=== PATIENT | female | born 1950 | race Caucasian/White ===

== ENCOUNTER 2020-11-14 20:42 | Inpatient (IN) | payer MEDICARE, MEDICAID ==
[~2020-11-14] VITALS: Ht 167.6 cm; Wt 74.0 kg
[2020-11-14] MEDS ORDERED: ASPIRIN 325MG EC TABLET PO ONE (21:15)
[2020-11-15 01:04] LABS: BASOPHILS % 1.3 % (0.0-2.0); EOSINOPHILS % 1.3 % (0.0-5.0); HEMATOCRIT. 38.3 % (36.0-48.0); HEMOGLOBIN. 13.1 g/dL (12.0-16.0); LYMPHOCYTES % 22.5 % (20.0-50.0); MEAN CORPUSCULAR HEMOGLOBIN 29.3 pg (28.0-32.0); MEAN CORPUSCULAR VOLUME 85.6 fL (81.0-99.0); MEAN PLATELET VOLUME 7.1 fl (7.4-10.4); MONOCYTES % 6.8 % (2.0-8.0); NEUTROPHILS % 68.1 % (40.0-76.0); PLATELET 289 x1000/uL (130-400); RED BLOOD CELL COUNT 4.48 mill/uL (4.2-5.4); RED CELL DISTRIBUTION WIDTH 13.6 % (11.6-14.6)
[2020-11-15 01:11] LABS: CHLORIDE 109 mEq/L (98-107)
[2020-11-15] MEDS ORDERED: ASPIRIN 325MG EC TABLET PO NR (02:15)
[2020-11-15] MEDS ORDERED: IOHEXOL-350 100 ML BOTTLE ONE (03:00)
[2020-11-15] MEDS ORDERED: HEPARIN 5000 UNITS/ML VIAL IV ONE (08:00)
[2020-11-15] MEDS ORDERED: NICARDIPINE 100MCG/ML 10ML VIAL (CATH LAB) IV ONE (08:12)
[2020-11-15] MEDS ORDERED: NITROGLYCERIN 50MCG/ML 10ML VIAL (CATH LAB) IV ONE (08:12)
[2020-11-15] MEDS ORDERED: HEPARIN SODIUM 1,000 UNIT/1ML VIAL IV ONE (08:12)
[2020-11-15] MEDS ORDERED: HEPARIN 25,000 UNITS PREMIX 250 ML IV SCH ×2 (08:15→13:15)
[2020-11-15] MEDS ORDERED: SODIUM CHLORIDE 0.45% 500 ML IV ONE (08:45)
[2020-11-15] MEDS ORDERED: AMLODIPINE 10MG TABLET PO NR (08:45)
[2020-11-15] MEDS ORDERED: METOPROLOL TARTRATE 50MG TABLET PO SCH (09:00)
[2020-11-15] MEDS ORDERED: HEPARIN 5000 UNITS/ML VIAL IV NR (09:15)
[2020-11-15] MEDS: ASPIRIN 81MG EC TABLET PO SCH (09:24)
[2020-11-15] MEDS: NITROGLYCERIN OINT 1GM/INCH UDPKT TD SCH ×3 (09:24→21:00)
[2020-11-15 09:43] VITALS: BP 149/68
[2020-11-15 10:00] VITALS: BP 149/68
[2020-11-15] MEDS ORDERED: IODIXANOL 320MG/ML 100 ML BOTTLE IV ONE (12:12)
[2020-11-15] MEDS ORDERED: LIDOCAINE HCL 1% 20ML VIAL (Pyxis) INJ ONE (12:12)
[2020-11-15] MEDS ORDERED: MIDAZOLAM HCL 2 MG/2 ML VIAL ONE (12:32)
[2020-11-15] MEDS ORDERED: FENTANYL CITRATE/PF 50MCG/ML 2ML VIAL ONE (12:33)
[2020-11-15] MEDS ORDERED: ATROPINE SULFATE 1MG/10ML SYR IV PRN (13:15)
[2020-11-15] MEDS ORDERED: SODIUM CHLORIDE 0.45% 1,000 ML IV ONE (13:15)
[2020-11-15] MEDS ORDERED: ONDANSETRON HCL 4MG/2ML INJ IV PRN (13:15)
[2020-11-15 13:32] LABS: CLARITY URINE CLEAR (CLEAR); COLOR URINE YELLOW (YELLOW); KETONES URINE NEGATIVE (NEGATIVE); LEUKOCYTE ESTERASE URINE NEGATIVE (NEGATIVE); NITRITE URINE NEGATIVE (NEGATIVE); OCCULT BLOOD URINE NEGATIVE (NEGATIVE); PROTEIN URINE NEGATIVE (NEGATIVE); SPECIFIC GRAVITY URINE 1.026 (1.005-1.030); UROBILINOGEN URINE 0.2 E.U./dL (0.2-1.0)
[2020-11-15] MEDS ORDERED: BISACODYL 10MG SUPP PR PRN (14:00)
[2020-11-15] MEDS ORDERED: HYDRALAZINE 20MG/ML VIAL IV PRN (14:00)
[2020-11-15] MEDS ORDERED: TRAMADOL 50MG TABLET PO PRN (14:00)
[2020-11-15] MEDS ORDERED: IPRATROPIUM/ALBUTEROL 0.5-3(2.5)MG/3ML NEB HHN PRN (14:00)
[2020-11-15 14:01] LABS: CANNABINOID URINE SCREEN NEGATIVE (NEGATIVE)
[2020-11-15 14:02] LABS: *AMPHETAMINES SCREEN URINE NEGATIVE (NEGATIVE); *BARBITURATES SCREEN URINE NEGATIVE (NEGATIVE); *BENZODIAZEPINES SCREEN URINE NEGATIVE (NEGATIVE); *COCAINE SCREEN URINE NEGATIVE (NEGATIVE); METHADONE URINE SCREEN NEGATIVE (NEGATIVE); OPIATES URINE SCREEN NEGATIVE (NEGATIVE); PHENCYCLIDINE URINE SCREEN NEGATIVE (NEGATIVE)
[2020-11-15 16:40] LABS: PARTIAL THROMBOPLASTIN TIME 41.3 sec (23.4-31.0); PROTHROMBIN TIME 10.6 sec (9.6-11.0)
[2020-11-15 17:25] VITALS: BP 135/69
[2020-11-15] MEDS ORDERED: HEPARIN 5000 UNITS/ML VIAL IV PRN ×2 (17:30)
[2020-11-15] MEDS ORDERED: HEPARIN 25,000 UNITS PREMIX 250 ML IV PRN (17:30)
[2020-11-15 18:00] VITALS: BP 128/69
[2020-11-15] MEDS: ENOXAPARIN 60MG/0.6ML SYR SUBCUT SCH (18:10)
[2020-11-15 20:00] VITALS: BP 128/69
[2020-11-15] MEDS: AMLODIPINE 5MG TABLET PO SCH (20:57)
[2020-11-16] VITALS (12 sets, daily range): BP systolic 94–145; BP diastolic 26–91
[2020-11-16] MEDS: ENOXAPARIN 60MG/0.6ML SYR SUBCUT SCH ×3 (05:26→21:10)
[2020-11-16] MEDS: NITROGLYCERIN OINT 1GM/INCH UDPKT TD SCH ×4 (05:26→21:09)
[2020-11-16 07:20] LABS: BASOPHILS % 0.9 % (0.0-2.0); EOSINOPHILS % 2.2 % (0.0-5.0); HEMATOCRIT. 35.6 % (36.0-48.0); HEMOGLOBIN. 12.2 g/dL (12.0-16.0); LYMPHOCYTES % 23.4 % (20.0-50.0); MEAN CORPUSCULAR HEMOGLOBIN 29.2 pg (28.0-32.0); MEAN CORPUSCULAR VOLUME 85.4 fL (81.0-99.0); MEAN PLATELET VOLUME 7.6 fl (7.4-10.4); MONOCYTES % 7.1 % (2.0-8.0); NEUTROPHILS % 66.4 % (40.0-76.0); PLATELET 245 x1000/uL (130-400); RED BLOOD CELL COUNT 4.17 mill/uL (4.2-5.4); RED CELL DISTRIBUTION WIDTH 13.2 % (11.6-14.6)
[2020-11-16] MEDS: AMLODIPINE 5MG TABLET PO SCH ×2 (09:38→21:11)
[2020-11-16] MEDS: ASPIRIN 81MG EC TABLET PO SCH (09:38)
[2020-11-17] VITALS (12 sets, daily range): BP systolic 99–179; BP diastolic 48–98
[2020-11-17] MEDS: NITROGLYCERIN OINT 1GM/INCH UDPKT TD SCH ×3 (05:07→22:00)
[2020-11-17 06:57] LABS: BASOPHILS % 0.8 % (0.0-2.0); EOSINOPHILS % 2.9 % (0.0-5.0); HEMATOCRIT. 36.8 % (36.0-48.0); HEMOGLOBIN. 12.4 g/dL (12.0-16.0); LYMPHOCYTES % 26.3 % (20.0-50.0); MEAN CORPUSCULAR VOLUME 86.2 fL (81.0-99.0); MEAN PLATELET VOLUME 7.4 fl (7.4-10.4); MONOCYTES % 8.6 % (2.0-8.0); NEUTROPHILS % 61.4 % (40.0-76.0); PLATELET 268 x1000/uL (130-400); RED BLOOD CELL COUNT 4.27 mill/uL (4.2-5.4); RED CELL DISTRIBUTION WIDTH 13.5 % (11.6-14.6)
[2020-11-17] MEDS: AMLODIPINE 5MG TABLET PO SCH ×2 (09:00→20:13)
[2020-11-17] MEDS: ASPIRIN 81MG EC TABLET PO SCH (09:20)
[2020-11-17] MEDS: ENOXAPARIN 60MG/0.6ML SYR SUBCUT SCH ×2 (09:21→13:52)
[2020-11-17] MEDS ORDERED: ACETAMINOPHEN 325MG TABLET PO PRN (13:45)
[2020-11-17] MEDS ORDERED: ALPRAZOLAM 0.25 MG TABLET PO PRN (13:45)
[2020-11-17] MEDS ORDERED: NITROGLYCERIN 0.4MG TABLET SL SL PRN (13:45)
[2020-11-17] MEDS: SODIUM CHLORIDE 0.9% INJ 3ML FLUSH IVF SCH ×2 (14:35→21:44)
[2020-11-17] MEDS: ACETAMINOPHEN 325MG TABLET PO PRN (15:45)
[2020-11-17] MEDS ORDERED: LACTULOSE 20G/30ML UDC PO NR (20:00)
[2020-11-17] MEDS: ALLOPURINOL 300 MG TABLET PO SCH (20:13)
[2020-11-17] MEDS ORDERED: CHLORHEXIDINE GLUCONATE 4% EXTERNAL USE TOP SCH (21:00)
[2020-11-17] MEDS ORDERED: BISACODYL 10MG SUPP PR PRN (21:00)
[2020-11-17] MEDS ORDERED: DIPHENHYDRAMINE 25MG CAPSULE PO PRN (21:00)
[2020-11-17] MEDS ORDERED: DOCUSATE SODIUM 100MG CAPSULE PO SCH (21:00)
[2020-11-17] MEDS ORDERED: ASCORBIC ACID 500 MG TABLET PO SCH (21:00)
[2020-11-18] VITALS (14 sets, daily range): BP systolic 101–166; BP diastolic 45–98
[2020-11-18] MEDS: SODIUM CHLORIDE 0.9% INJ 3ML FLUSH IVF SCH ×3 (05:06→22:09)
[2020-11-18] MEDS: NITROGLYCERIN OINT 1GM/INCH UDPKT TD SCH ×3 (05:45→22:00)
[2020-11-18] MEDS: ALLOPURINOL 300 MG TABLET PO SCH (05:46)
[2020-11-18] MEDS ORDERED: INSULIN REGULAR (DRIP) 100 UNITS in SODIUM CHLORIDE 0.9% 99 ML IV PRN (06:00)
[2020-11-18] MEDS ORDERED: DEL NIDO ELECTROLYTE-S(PH 7.4) 1,000 ML IV PRN ×2 (06:00)
[2020-11-18] MEDS ORDERED: DOPAMINE 400 MG PREMIX 250 ML IV PRN (06:00)
[2020-11-18] MEDS ORDERED: EPINEPHRINE 5 MG in DEXT 5% WATER 245 ML IV PRN (06:00)
[2020-11-18] MEDS ORDERED: VANCOMYCIN 1G PREMIX 200ML IV PRN (06:00)
[2020-11-18] MEDS ORDERED: NOREPINEPHRINE 8 MG in DEXT 5% WATER 242 ML IV PRN (06:00)
[2020-11-18] MEDS ORDERED: PAPAVERINE HCL 180MG in SODIUM CHLORIDE 0.9% 24ML IV PRN (06:00)
[2020-11-18] MEDS ORDERED: NICARDIPINE 40 MG/200 ML PREMIX 200 ML IV PRN (06:00)
[2020-11-18] MEDS ORDERED: DOBUTAMINE 250 MG PREMIX 250 ML IV PRN (06:00)
[2020-11-18] MEDS ORDERED: AMINOCAPROIC ACID 5,000 MG in SODIUM CHLORIDE 0.9% 230 ML IV PRN (06:00)
[2020-11-18 07:14] LABS: PROTHROMBIN TIME 10.4 sec (9.6-11.0)
[2020-11-18 07:15] LABS: BASOPHILS % 0.7 % (0.0-2.0); EOSINOPHILS % 2.8 % (0.0-5.0); HEMATOCRIT. 38.5 % (36.0-48.0); HEMOGLOBIN. 12.7 g/dL (12.0-16.0); LYMPHOCYTES % 25.1 % (20.0-50.0); MEAN CORPUSCULAR HEMOGLOBIN 28.4 pg (28.0-32.0); MEAN CORPUSCULAR VOLUME 85.9 fL (81.0-99.0); MEAN PLATELET VOLUME 7.6 fl (7.4-10.4); MONOCYTES % 9.1 % (2.0-8.0); NEUTROPHILS % 62.3 % (40.0-76.0); PLATELET 245 x1000/uL (130-400); RED BLOOD CELL COUNT 4.48 mill/uL (4.2-5.4); RED CELL DISTRIBUTION WIDTH 13.6 % (11.6-14.6)
[2020-11-18] MEDS: AMLODIPINE 5MG TABLET PO SCH ×2 (07:52→22:08)
[2020-11-18] MEDS: ASPIRIN 81MG EC TABLET PO SCH (07:52)
[2020-11-18 08:21] LABS: CHLORIDE 105 mEq/L (98-107)
[2020-11-18] MEDS ORDERED: CHLORHEXIDINE GLUCONATE 4% EXTERNAL USE TOP SCH ×2 (09:00→21:00)
[2020-11-19] VITALS (54 sets, daily range): BP systolic 96–175; BP diastolic 31–108
[2020-11-19] MEDS ORDERED: CHLORHEXIDINE GLUCONATE 4% EXTERNAL USE TOP SCH (05:00)
[2020-11-19] MEDS ORDERED: DOPAMINE 400 MG PREMIX 250 ML IV PRN (06:00)
[2020-11-19] MEDS ORDERED: PAPAVERINE HCL 180MG in SODIUM CHLORIDE 0.9% 24ML IV PRN (06:00)
[2020-11-19] MEDS ORDERED: NICARDIPINE 40 MG/200 ML PREMIX 200 ML IV PRN (06:00)
[2020-11-19] MEDS ORDERED: AMINOCAPROIC ACID 5,000 MG in SODIUM CHLORIDE 0.9% 230 ML IV PRN ×2 (06:00→15:00)
[2020-11-19] MEDS ORDERED: EPINEPHRINE 5 MG in DEXT 5% WATER 245 ML IV PRN ×2 (06:00→18:00)
[2020-11-19] MEDS ORDERED: INSULIN REGULAR (DRIP) 100 UNITS in SODIUM CHLORIDE 0.9% 99 ML IV PRN (06:00)
[2020-11-19] MEDS ORDERED: DOBUTAMINE 250 MG PREMIX 250 ML IV PRN (06:00)
[2020-11-19] MEDS ORDERED: DEL NIDO ELECTROLYTE-S(PH 7.4) 1,000 ML IV PRN ×2 (06:00)
[2020-11-19] MEDS ORDERED: VANCOMYCIN 1G PREMIX 200ML IV PRN (06:00)
[2020-11-19] MEDS ORDERED: NOREPINEPHRINE 8 MG in DEXT 5% WATER 242 ML IV PRN (06:00)
[2020-11-19 06:12] LABS: BASOPHILS % 0.9 % (0.0-2.0); EOSINOPHILS % 2.8 % (0.0-5.0); HEMATOCRIT. 41.6 % (36.0-48.0); HEMOGLOBIN. 13.4 g/dL (12.0-16.0); MEAN CORPUSCULAR HEMOGLOBIN 28.2 pg (28.0-32.0); MEAN CORPUSCULAR VOLUME 87.3 fL (81.0-99.0); MEAN PLATELET VOLUME 7.4 fl (7.4-10.4); MONOCYTES % 8.2 % (2.0-8.0); NEUTROPHILS % 62.1 % (40.0-76.0); PLATELET 303 x1000/uL (130-400); RED BLOOD CELL COUNT 4.77 mill/uL (4.2-5.4); RED CELL DISTRIBUTION WIDTH 13.8 % (11.6-14.6)
[2020-11-19] MEDS ORDERED: SKIN ADHESIVE 0.7 GM EA TOP ONE (06:16)
[2020-11-19] MEDS ORDERED: THROMBIN (BOVINE) 5000 UNITS/VIAL TOP ONE (06:16)
[2020-11-19] MEDS ORDERED: HEPARIN 1000 UNITS/ML 10ML ONE ×4 (06:17→11:04)
[2020-11-19] MEDS ORDERED: POLYMYXIN B SULFATE 500000 UNITS/VIAL ONE (06:17)
[2020-11-19] MEDS: SODIUM CHLORIDE 0.9% INJ 3ML FLUSH IVF SCH (06:18)
[2020-11-19] MEDS ORDERED: ACETAMINOPHEN 500MG TABLET ONE (06:18)
[2020-11-19] MEDS: NITROGLYCERIN OINT 1GM/INCH UDPKT TD SCH (06:19)
[2020-11-19] MEDS ORDERED: FENTANYL CITRATE/PF 50MCG/ML 5ML VIAL ONE (07:18)
[2020-11-19] MEDS ORDERED: ETOMIDATE 2MG/ML 10ML VIAL IV ONE (07:19)
[2020-11-19] MEDS ORDERED: ROCURONIUM BROMIDE 10MG/ML VIAL 5ML IV ONE (07:19)
[2020-11-19] MEDS ORDERED: LIDOCAINE HCL 2% 5ML SYRINGE IV ONE (07:23)
[2020-11-19] MEDS ORDERED: LABETALOL HCL 5MG/ML VIAL 20ML IV ONE (07:23)
[2020-11-19] MEDS ORDERED: ALBUMIN HUMAN 12.5G/250ML (5%) IV ONE ×2 (08:14→15:40)
[2020-11-19] MEDS ORDERED: MAGNESIUM SULFATE 1G IN DEXT 5% 100ML PREMIX IV ONE (08:14)
[2020-11-19] MEDS ORDERED: POTASSIUM CHLORIDE 10MEQ IN WATER 50ML PREMIX IV ONE (08:14)
[2020-11-19] MEDS ORDERED: METHYLENE BLUE 50 MG/10 ML AMP IV ONE (09:38)
[2020-11-19] MEDS ORDERED: PROPOFOL 200MG/20ML VIAL IV ONE (09:48)
[2020-11-19] MEDS ORDERED: AMINOCAPROIC ACID 250 MG/ML 20ML VIAL ONE ×2 (09:54→10:32)
[2020-11-19] MEDS ORDERED: VECURONIUM BROMIDE 10 MG/VIAL IV ONE ×2 (09:55→13:25)
[2020-11-19] MEDS ORDERED: DEXTROSE 50% WATER 50ML SYRINGE IV PRN ×2 (10:00)
[2020-11-19] MEDS ORDERED: HEPARIN 10,000 UNITS/ML VIAL ONE (10:32)
[2020-11-19] MEDS ORDERED: MANNITOL 20% (20GM/100ML) BAG 500ML PREMIX IV ONE (10:32)
[2020-11-19] MEDS ORDERED: PHENYLEPHRINE HCL 10 MG/ML 1ML (IV VIAL) IV ONE (10:32)
[2020-11-19] MEDS ORDERED: ALBUMIN HUMAN 25GM/100ML (25%) IV ONE (10:32)
[2020-11-19] MEDS ORDERED: SODIUM BICARBONATE 8.4% 1 MEQ/ML 50ML SYR IV ONE ×2 (10:32→14:49)
[2020-11-19] MEDS ORDERED: CALCIUM CHLORIDE 1GM/10ML SYR IV ONE (10:32)
[2020-11-19] MEDS ORDERED: MAGNESIUM SULFATE 5GM/10ML VIAL IV ONE (10:32)
[2020-11-19] MEDS ORDERED: VANCOMYCIN HCL 500 MG/VIAL ONE (10:33)
[2020-11-19] MEDS ORDERED: NITROGLYCERIN 50MG PREMIX 250 ML IV ONE (11:02)
[2020-11-19] MEDS ORDERED: KCL 10MEQ/50ML PREMIX 150 ML IV PRN (14:00)
[2020-11-19] MEDS ORDERED: KCL 10MEQ/50ML PREMIX 200 ML IV PRN (14:00)
[2020-11-19] MEDS ORDERED: PROTAMINE SULFATE 10MG/ML VIAL 25ML IV ONE (14:06)
[2020-11-19] MEDS ORDERED: ONDANSETRON HCL 4MG/2ML INJ ONE (14:35)
[2020-11-19] MEDS ORDERED: METOCLOPRAMIDE HCL 10MG/2ML VIAL ONE (14:35)
[2020-11-19] MEDS: BLOOD SUGAR DIAGNOSTIC STRIP TEST SCH ×9 (15:00→23:00)
[2020-11-19 15:26] LABS: BASOPHILS % 0.2 % (0.0-2.0); EOSINOPHILS % 0.5 % (0.0-5.0); LYMPHOCYTES % 15.1 % (20.0-50.0); MEAN CORPUSCULAR HEMOGLOBIN 29.6 pg (28.0-32.0); MEAN CORPUSCULAR VOLUME 86.7 fL (81.0-99.0); MEAN PLATELET VOLUME 7.2 fl (7.4-10.4); MONOCYTES % 1.8 % (2.0-8.0); NEUTROPHILS % 82.4 % (40.0-76.0); PLATELET 148 x1000/uL (130-400); RED BLOOD CELL COUNT 2.99 mill/uL (4.2-5.4); RED CELL DISTRIBUTION WIDTH 13.6 % (11.6-14.6)
[2020-11-19 15:33] LABS: INR 1.1; PARTIAL THROMBOPLASTIN TIME 24.3 sec (23.4-31.0); PROTHROMBIN TIME 11.8 sec (9.6-11.0)
[2020-11-19 15:37] LABS: CHLORIDE 106 mEq/L (98-107)
[2020-11-19 15:41] LABS: HEMATOCRIT. 25.9 % (36.0-48.0); HEMOGLOBIN. 8.9 g/dL (12.0-16.0)
[2020-11-19 15:43] LABS: PHOSPHORUS 1.9 mg/dL (2.5-4.9)
[2020-11-19] MEDS ORDERED: DEXT 5%/0.45% NACL 1000ML 1,000 ML IV SCH (16:00)
[2020-11-19 16:15] LABS: BG BASE EXCESS -0.5 mmol/L (-2.0-2.0); BG CARBOXYHEMOGLOBIN 0.2 % (0.5-1.5); BG DEOXYHEMOGLOBIN 1.8 % (0.0-5.0); BG FRACTION INSPIRED OXYGEN 60; BG HCO3 ACT 23.8 mmol/L (22.0-26.0); BG METHEMOGLOBIN 0.4 % (0.0-1.5); BG OXYGEN SATURATION 98.2 % (92.0-98.5); BG OXYHEMOGLOBIN 97.6 % (94.0-97.0); BG PH 7.415 (7.350-7.450); BG PO2 122.6 mmHg (75.0-100.0); BG SAMPLE SITE ALINE; BG TOTAL HEMOGLOBIN 12.1 g/dL (12.0-18.0); BG VENT MODE VENT - AC
[2020-11-19 16:34] LABS: BASOPHILS % 0.1 % (0.0-2.0); EOSINOPHILS % 0.2 % (0.0-5.0); HEMATOCRIT. 33.1 % (36.0-48.0); HEMOGLOBIN. 11.2 g/dL (12.0-16.0); LYMPHOCYTES % 11.5 % (20.0-50.0); MEAN CORPUSCULAR HEMOGLOBIN 29.2 pg (28.0-32.0); MEAN PLATELET VOLUME 7.2 fl (7.4-10.4); MONOCYTES % 5.3 % (2.0-8.0); NEUTROPHILS % 82.9 % (40.0-76.0); PLATELET 156 x1000/uL (130-400); RED BLOOD CELL COUNT 3.84 mill/uL (4.2-5.4); RED CELL DISTRIBUTION WIDTH 13.6 % (11.6-14.6)
[2020-11-19] MEDS: DEXT 5%/0.45% NACL 1000ML 1,000 ML IV SCH (16:45)
[2020-11-19] MEDS ORDERED: MAGNESIUM 2 G PREMIX 50 ML IV PRN (16:45)
[2020-11-19] MEDS ORDERED: SODIUM CHLORIDE 0.9% 500 ML IV PRN (16:45)
[2020-11-19] MEDS ORDERED: ALBUMIN HUMAN 12.5G/250ML (5%) IV NR ×2 (16:45→17:42)
[2020-11-19] MEDS ORDERED: ALBUMIN HUMAN 12.5G/250ML (5%) IV PRN (16:45)
[2020-11-19] MEDS ORDERED: NITROGLYCERIN 50MG PREMIX 250 ML IV SCH (16:45)
[2020-11-19] MEDS ORDERED: MAGNESIUM SULFATE 3 GM in DEXT 5% WATER 100 ML IV PRN (16:45)
[2020-11-19] MEDS: MAGNESIUM HYDROXIDE 400MG/5ML 30ML UDC PO SCH ×2 (17:00→20:35)
[2020-11-19] MEDS: DOCUSATE SODIUM 100MG CAPSULE PO SCH (17:00)
[2020-11-19] MEDS: MORPHINE SULFATE 2 MG/ML CPJ (NOT FOR IM USE) IV PRN ×3 (17:28→22:28)
[2020-11-19 17:29] LABS: BG BASE EXCESS -1.1 mmol/L (-2.0-2.0); BG CARBOXYHEMOGLOBIN 0.3 % (0.5-1.5); BG DEOXYHEMOGLOBIN 1.9 % (0.0-5.0); BG FRACTION INSPIRED OXYGEN 50; BG HCO3 ACT 23.6 mmol/L (22.0-26.0); BG METHEMOGLOBIN 0.3 % (0.0-1.5); BG OXYGEN SATURATION 98.1 % (92.0-98.5); BG OXYHEMOGLOBIN 97.5 % (94.0-97.0); BG PCO2 39.4 mmHg (35.0-45.0); BG PH 7.395 (7.350-7.450); BG PO2 122.1 mmHg (75.0-100.0); BG SAMPLE SITE ALINE; BG TOTAL HEMOGLOBIN 11.6 g/dL (12.0-18.0); BG VENT MODE VENT - AC
[2020-11-19 18:24] LABS: BG BASE EXCESS -1.4 mmol/L (-2.0-2.0); BG CARBOXYHEMOGLOBIN 0.3 % (0.5-1.5); BG DEOXYHEMOGLOBIN 2.5 % (0.0-5.0); BG FRACTION INSPIRED OXYGEN 40; BG HCO3 ACT 22.4 mmol/L (22.0-26.0); BG METHEMOGLOBIN 0.4 % (0.0-1.5); BG OXYGEN SATURATION 97.5 % (92.0-98.5); BG OXYHEMOGLOBIN 96.8 % (94.0-97.0); BG PCO2 34.5 mmHg (35.0-45.0); BG PH 7.431 (7.350-7.450); BG SAMPLE SITE ALINE; BG TOTAL HEMOGLOBIN 10.8 g/dL (12.0-18.0); BG VENT MODE VENT - AC
[2020-11-19] MEDS: CEFAZOLIN 1000MG PREMIX 50 ML IV SCH (20:22)
[2020-11-19 20:31] LABS: BG BASE EXCESS -0.1 mmol/L (-2.0-2.0); BG CARBOXYHEMOGLOBIN 0.3 % (0.5-1.5); BG DEOXYHEMOGLOBIN 2.3 % (0.0-5.0); BG FRACTION INSPIRED OXYGEN 40; BG HCO3 ACT 24.1 mmol/L (22.0-26.0); BG METHEMOGLOBIN 0.4 % (0.0-1.5); BG OXYGEN SATURATION 97.7 % (92.0-98.5); BG PCO2 37.6 mmHg (35.0-45.0); BG PH 7.425 (7.350-7.450); BG SAMPLE SITE ALINE; BG TOTAL HEMOGLOBIN 10.7 g/dL (12.0-18.0); BG TOTAL RESPIRATORY RATE 32 b/min; BG VENT MODE VENT - SIMV
[2020-11-19] MEDS: ACETAMINOPHEN 325MG TABLET PO PRN (20:36)
[2020-11-19 21:21] LABS: HEMATOCRIT. 29.3 % (36.0-48.0); MEAN CORPUSCULAR HEMOGLOBIN 29.3 pg (28.0-32.0); MEAN CORPUSCULAR VOLUME 85.9 fL (81.0-99.0); MEAN PLATELET VOLUME 7.4 fl (7.4-10.4); PLATELET 126 x1000/uL (130-400); RED BLOOD CELL COUNT 3.41 mill/uL (4.2-5.4); RED CELL DISTRIBUTION WIDTH 13.9 % (11.6-14.6)
[2020-11-19] MEDS: KCL 10MEQ/50ML PREMIX 100 ML IV PRN (22:53)
[2020-11-19] MEDS: MAGNESIUM 1 G PREMIX 100 ML IV PRN (22:54)
[2020-11-19] MEDS: IPRATROPIUM/ALBUTEROL 0.5-3(2.5)MG/3ML NEB HHN SCH (23:36)
[2020-11-20] VITALS (52 sets, daily range): BP systolic 93–228; BP diastolic 26–228
[2020-11-20] MEDS: INSULIN REGULAR (DRIP) 100 UNITS in SODIUM CHLORIDE 0.9% 100 ML IV SCH ×2 (00:15→12:15)
[2020-11-20] MEDS: MORPHINE SULFATE 2 MG/ML CPJ (NOT FOR IM USE) IV PRN ×5 (00:27→18:31)
[2020-11-20 00:40] LABS: BG BASE EXCESS -0.1 mmol/L (-2.0-2.0); BG CARBOXYHEMOGLOBIN 0.3 % (0.5-1.5); BG DEOXYHEMOGLOBIN 2.9 % (0.0-5.0); BG FRACTION INSPIRED OXYGEN 40; BG HCO3 ACT 23.8 mmol/L (22.0-26.0); BG METHEMOGLOBIN 0.1 % (0.0-1.5); BG OXYGEN SATURATION 97.1 % (92.0-98.5); BG OXYHEMOGLOBIN 96.7 % (94.0-97.0); BG PCO2 35.8 mmHg (35.0-45.0); BG PO2 93.7 mmHg (75.0-100.0); BG SAMPLE SITE ALINE; BG TOTAL HEMOGLOBIN 10.7 g/dL (12.0-18.0); BG TOTAL RESPIRATORY RATE 23 b/min; BG VENT MODE VENT - SIMV
[2020-11-20] MEDS: ACETAMINOPHEN 325MG TABLET PO PRN (00:41)
[2020-11-20] MEDS: MAGNESIUM HYDROXIDE 400MG/5ML 30ML UDC PO SCH ×5 (00:44→17:14)
[2020-11-20] MEDS: BLOOD SUGAR DIAGNOSTIC STRIP TEST SCH ×24 (01:00→23:00)
[2020-11-20] MEDS: DEXT 5%/0.45% NACL 1000ML 1,000 ML IV SCH ×2 (01:50→21:37)
[2020-11-20 02:14] LABS: BG CARBOXYHEMOGLOBIN 0.4 % (0.5-1.5); BG FRACTION INSPIRED OXYGEN 40; BG HCO3 ACT 22.5 mmol/L (22.0-26.0); BG METHEMOGLOBIN 0.3 % (0.0-1.5); BG OXYHEMOGLOBIN 96.3 % (94.0-97.0); BG PCO2 32.9 mmHg (35.0-45.0); BG PH 7.452 (7.350-7.450); BG SAMPLE SITE ALINE; BG TOTAL HEMOGLOBIN 10.7 g/dL (12.0-18.0); BG TOTAL RESPIRATORY RATE 34 b/min; BG VENT MODE VENT - CPAP
[2020-11-20] MEDS: CEFAZOLIN 1000MG PREMIX 50 ML IV SCH ×3 (03:02→17:14)
[2020-11-20 03:34] LABS: PLATELET ESTIMATE SLIGHTLY DECREASED
[2020-11-20 03:52] LABS: BASOPHILS % 0.4 % (0.0-2.0); EOSINOPHILS % 0.3 % (0.0-5.0); HEMOGLOBIN. 10.2 g/dL (12.0-16.0); LYMPHOCYTES % 7.9 % (20.0-50.0); MEAN CORPUSCULAR HEMOGLOBIN 28.7 pg (28.0-32.0); MEAN CORPUSCULAR VOLUME 87.3 fL (81.0-99.0); MEAN PLATELET VOLUME 8.1 fl (7.4-10.4); MONOCYTES % 6.8 % (2.0-8.0); NEUTROPHILS % 84.6 % (40.0-76.0); PLATELET 125 x1000/uL (130-400); RED BLOOD CELL COUNT 3.55 mill/uL (4.2-5.4); RED CELL DISTRIBUTION WIDTH 14.2 % (11.6-14.6)
[2020-11-20] MEDS: IPRATROPIUM/ALBUTEROL 0.5-3(2.5)MG/3ML NEB HHN SCH ×5 (04:06→21:20)
[2020-11-20 04:21] LABS: PHOSPHORUS 2.7 mg/dL (2.5-4.9)
[2020-11-20] MEDS: OXYCODONE HCL/ACETAMINOPHEN 5/325MG TABLET PO PRN ×2 (07:53→13:07)
[2020-11-20 09:02] LABS: BG BASE EXCESS -1.4 mmol/L (-2.0-2.0); BG CARBOXYHEMOGLOBIN 0.8 % (0.5-1.5); BG DEOXYHEMOGLOBIN 7.2 % (0.0-5.0); BG FRACTION INSPIRED OXYGEN 32; BG HCO3 ACT 23.8 mmol/L (22.0-26.0); BG METHEMOGLOBIN 0.1 % (0.0-1.5); BG OXYGEN SATURATION 92.7 % (92.0-98.5); BG OXYHEMOGLOBIN 91.9 % (94.0-97.0); BG PH 7.372 (7.350-7.450); BG PO2 64.9 mmHg (75.0-100.0); BG SAMPLE SITE ALINE; BG TOTAL HEMOGLOBIN 11.7 g/dL (12.0-18.0); BG VENT MODE NASAL CANNULA
[2020-11-20] MEDS: DOCUSATE SODIUM 100MG CAPSULE PO SCH ×2 (09:25→17:10)
[2020-11-20] MEDS: FAMOTIDINE 20MG/2ML VIAL IV SCH (09:25)
[2020-11-20] MEDS ORDERED: FUROSEMIDE 40MG/4ML VIAL IVP NR (11:00)
[2020-11-20] MEDS: ASPIRIN 81MG EC TABLET PO SCH (11:04)
[2020-11-21] VITALS (24 sets, daily range): BP systolic 78–130; BP diastolic 45–71
[2020-11-21] MEDS ORDERED: FUROSEMIDE 40MG/4ML VIAL IVP NR
[2020-11-21] MEDS: BLOOD SUGAR DIAGNOSTIC STRIP TEST SCH ×19 (01:00→21:20)
[2020-11-21] MEDS: IPRATROPIUM/ALBUTEROL 0.5-3(2.5)MG/3ML NEB HHN SCH ×5 (01:15→20:46)
[2020-11-21] MEDS: MORPHINE SULFATE 2 MG/ML CPJ (NOT FOR IM USE) IV PRN ×3 (01:19→09:51)
[2020-11-21] MEDS: OXYCODONE HCL/ACETAMINOPHEN 5/325MG TABLET PO PRN ×2 (03:52→11:33)
[2020-11-21 06:30] LABS: PHOSPHORUS 2.9 mg/dL (2.5-4.9)
[2020-11-21 06:38] LABS: BASOPHILS % 0.3 % (0.0-2.0); EOSINOPHILS % 0.7 % (0.0-5.0); HEMATOCRIT. 35.1 % (36.0-48.0); HEMOGLOBIN. 11.2 g/dL (12.0-16.0); LYMPHOCYTES % 9.6 % (20.0-50.0); MEAN CORPUSCULAR HEMOGLOBIN 28.6 pg (28.0-32.0); MEAN CORPUSCULAR VOLUME 89.3 fL (81.0-99.0); NEUTROPHILS % 83.4 % (40.0-76.0); PLATELET 145 x1000/uL (130-400); RED BLOOD CELL COUNT 3.93 mill/uL (4.2-5.4); RED CELL DISTRIBUTION WIDTH 14.4 % (11.6-14.6)
[2020-11-21] MEDS: MAGNESIUM 1 G PREMIX 100 ML IV PRN (08:38)
[2020-11-21] MEDS: ASPIRIN 81MG EC TABLET PO SCH (08:39)
[2020-11-21] MEDS: FAMOTIDINE 20MG/2ML VIAL IV SCH (08:39)
[2020-11-21] MEDS: DOCUSATE SODIUM 100MG CAPSULE PO SCH ×2 (08:39→16:47)
[2020-11-21] MEDS: ACETAMINOPHEN 325MG TABLET PO PRN (08:40)
[2020-11-21] MEDS ORDERED: MAGNESIUM HYDROXIDE 400MG/5ML 30ML UDC PO PRN (13:15)
[2020-11-21] MEDS ORDERED: KETOROLAC 15MG/ML VIAL IV NR (13:15)
[2020-11-21] MEDS: INSULIN REGULAR (DRIP) 100 UNITS in SODIUM CHLORIDE 0.9% 100 ML IV SCH (15:03)
[2020-11-21] MEDS: LACTULOSE 20G/30ML UDC PO PRN ×2 (15:08→20:59)
[2020-11-21] MEDS: DEXT 5%/0.45% NACL 1000ML 1,000 ML IV SCH (16:48)
[2020-11-21] MEDS: MAGNESIUM HYDROXIDE 400MG/5ML 30ML UDC PO SCH ×2 (16:52→20:59)
[2020-11-21] MEDS ORDERED: DEXTROSE 50% WATER 50ML SYRINGE IV PRN (19:15)
[2020-11-21] MEDS: INSULIN LISPRO 100 UNITS/ML SUBCUT SCH (21:00)
[2020-11-21] MEDS ORDERED: LACTULOSE 20G/30ML UDC PO ONE (21:00)
[2020-11-21] MEDS: ONDANSETRON HCL 4MG/2ML INJ IV PRN (21:22)
[2020-11-21] MEDS ORDERED: LACTULOSE 20G/30ML UDC PO NR (21:30)
[2020-11-22] VITALS (22 sets, daily range): BP systolic 98–151; BP diastolic 56–84
[2020-11-22] MEDS: IPRATROPIUM/ALBUTEROL 0.5-3(2.5)MG/3ML NEB HHN SCH ×6 (00:17→20:46)
[2020-11-22] MEDS: HYDROCODONE/ACETAMINOPHEN 5/325MG TABLET PO PRN ×2 (00:56→14:22)
[2020-11-22 06:10] LABS: BASOPHILS % 0.6 % (0.0-2.0); HEMATOCRIT. 29.2 % (36.0-48.0); HEMOGLOBIN. 9.7 g/dL (12.0-16.0); LYMPHOCYTES % 13.3 % (20.0-50.0); MEAN CORPUSCULAR HEMOGLOBIN 28.9 pg (28.0-32.0); MEAN CORPUSCULAR VOLUME 87.3 fL (81.0-99.0); MEAN PLATELET VOLUME 7.7 fl (7.4-10.4); MONOCYTES % 6.1 % (2.0-8.0); PLATELET 148 x1000/uL (130-400); RED BLOOD CELL COUNT 3.34 mill/uL (4.2-5.4); RED CELL DISTRIBUTION WIDTH 14.2 % (11.6-14.6)
[2020-11-22] MEDS: INSULIN LISPRO 100 UNITS/ML SUBCUT SCH ×4 (06:44→23:21)
[2020-11-22] MEDS: BLOOD SUGAR DIAGNOSTIC STRIP TEST SCH ×4 (06:44→20:34)
[2020-11-22] MEDS ORDERED: MAGNESIUM HYDROXIDE 400MG/5ML 30ML UDC PO PRN (08:00)
[2020-11-22] MEDS: ASPIRIN 81MG EC TABLET PO SCH (08:52)
[2020-11-22] MEDS: FAMOTIDINE 20MG/2ML VIAL IV SCH (08:53)
[2020-11-22] MEDS: DOCUSATE SODIUM 100MG CAPSULE PO SCH ×2 (08:53→16:06)
[2020-11-22] MEDS ORDERED: CLOPIDOGREL 75MG TABLET PO SCH (09:00)
[2020-11-22] MEDS: KCL 10MEQ/50ML PREMIX 100 ML IV PRN (09:13)
[2020-11-22] MEDS ORDERED: POTASSIUM CHLORIDE 20MEQ TABLET SR PO NR (10:45)
[2020-11-22] MEDS ORDERED: FUROSEMIDE 40MG/4ML VIAL IVP NR (10:45)
[2020-11-22] MEDS: ACETAMINOPHEN 325MG TABLET PO PRN (12:26)
[2020-11-22] MEDS ORDERED: LIDOCAINE HCL 1% 20ML VIAL (Pyxis) INJ ONE (13:15)
[2020-11-22] MEDS: DEXT 5%/0.45% NACL 1000ML 1,000 ML IV SCH (16:00)
[2020-11-22] MEDS: ONDANSETRON HCL 4MG/2ML INJ IV PRN (16:06)
[2020-11-22 16:20] LABS: HEMATOCRIT 30.4 % (36.0-48.0); HEMOGLOBIN 10.2 g/dL (12.0-16.0)
[2020-11-22] MEDS ORDERED: METOPROLOL TARTRATE 25MG TABLET PO SCH (21:00)
[2020-11-22] MEDS: OXYCODONE HCL/ACETAMINOPHEN 5/325MG TABLET PO PRN (23:31)
[2020-11-23] VITALS (12 sets, daily range): BP systolic 90–125; BP diastolic 43–71
[2020-11-23] MEDS: IPRATROPIUM/ALBUTEROL 0.5-3(2.5)MG/3ML NEB HHN SCH ×6 (00:56→21:23)
[2020-11-23] MEDS: DEXT 5%/0.45% NACL 1000ML 1,000 ML IV SCH (01:15)
[2020-11-23] MEDS: HYDROCODONE/ACETAMINOPHEN 5/325MG TABLET PO PRN (03:08)
[2020-11-23] MEDS: BLOOD SUGAR DIAGNOSTIC STRIP TEST SCH ×4 (06:33→21:37)
[2020-11-23] MEDS: INSULIN LISPRO 100 UNITS/ML SUBCUT SCH ×4 (07:20→21:00)
[2020-11-23 07:59] LABS: BASOPHILS % 0.8 % (0.0-2.0); HEMATOCRIT. 28.9 % (36.0-48.0); HEMOGLOBIN. 9.7 g/dL (12.0-16.0); LYMPHOCYTES % 19.5 % (20.0-50.0); MEAN CORPUSCULAR HEMOGLOBIN 29.3 pg (28.0-32.0); MEAN CORPUSCULAR VOLUME 87.5 fL (81.0-99.0); MEAN PLATELET VOLUME 7.4 fl (7.4-10.4); MONOCYTES % 9.6 % (2.0-8.0); NEUTROPHILS % 67.1 % (40.0-76.0); PLATELET 222 x1000/uL (130-400)
[2020-11-23] MEDS: DOCUSATE SODIUM 100MG CAPSULE PO SCH ×2 (09:45→17:20)
[2020-11-23] MEDS: METOPROLOL TARTRATE 50MG TABLET PO SCH ×2 (09:45→21:45)
[2020-11-23] MEDS: FAMOTIDINE 20MG/2ML VIAL IV SCH (09:45)
[2020-11-23] MEDS ORDERED: LIDOCAINE HCL/PF 1% 2ML VIAL ONE (14:50)
[2020-11-23] MEDS: MORPHINE SULFATE 2 MG/ML CPJ (NOT FOR IM USE) IV PRN (15:09)
[2020-11-23 15:50] LABS: BG BASE EXCESS 3.5 mmol/L (-2.0-2.0); BG DEOXYHEMOGLOBIN 9.5 % (0.0-5.0); BG FRACTION INSPIRED OXYGEN 21; BG HCO3 ACT 27.3 mmol/L (22.0-26.0); BG METHEMOGLOBIN 0.4 % (0.0-1.5); BG OXYGEN SATURATION 90.5 % (92.0-98.5); BG OXYHEMOGLOBIN 90.1 % (94.0-97.0); BG PCO2 38.6 mmHg (35.0-45.0); BG PH 7.468 (7.350-7.450); BG PO2 56.1 mmHg (75.0-100.0); BG SAMPLE SITE RIGHT RADIAL; BG TOTAL HEMOGLOBIN 10.8 g/dL (12.0-18.0); BG VENT MODE ROOM AIR
[2020-11-23] MEDS ORDERED: FUROSEMIDE 40MG/4ML VIAL IVP NR (16:30)
[2020-11-24] VITALS (12 sets, daily range): BP systolic 84–120; BP diastolic 46–75
[2020-11-24] MEDS: IPRATROPIUM/ALBUTEROL 0.5-3(2.5)MG/3ML NEB HHN SCH ×6 (00:30→21:11)
[2020-11-24] MEDS: OXYCODONE HCL/ACETAMINOPHEN 5/325MG TABLET PO PRN (00:32)
[2020-11-24] MEDS ORDERED: FUROSEMIDE 40MG/4ML VIAL IVP NR ×2 (06:00→16:00)
[2020-11-24] MEDS: BLOOD SUGAR DIAGNOSTIC STRIP TEST SCH ×4 (06:58→20:04)
[2020-11-24 07:20] LABS: HEMATOCRIT. 28.7 % (36.0-48.0); HEMOGLOBIN. 9.7 g/dL (12.0-16.0); MEAN CORPUSCULAR HEMOGLOBIN 29.6 pg (28.0-32.0); MEAN CORPUSCULAR VOLUME 87.6 fL (81.0-99.0); PLATELET 261 x1000/uL (130-400); RED BLOOD CELL COUNT 3.28 mill/uL (4.2-5.4); RED CELL DISTRIBUTION WIDTH 14.1 % (11.6-14.6)
[2020-11-24] MEDS: INSULIN LISPRO 100 UNITS/ML SUBCUT SCH ×4 (07:20→20:20)
[2020-11-24] MEDS: ONDANSETRON HCL 4MG/2ML INJ IV PRN (07:43)
[2020-11-24] MEDS: METOPROLOL TARTRATE 50MG TABLET PO SCH ×2 (09:06→20:04)
[2020-11-24] MEDS: FAMOTIDINE 20MG/2ML VIAL IV SCH (09:06)
[2020-11-24] MEDS: DOCUSATE SODIUM 100MG CAPSULE PO SCH ×2 (09:06→17:17)
[2020-11-24] MEDS: ASPIRIN 81MG EC TABLET PO SCH (09:06)
[2020-11-24] MEDS: CLOPIDOGREL 75MG TABLET PO SCH (09:06)
[2020-11-24] MEDS: HYDROCODONE/ACETAMINOPHEN 5/325MG TABLET PO PRN ×2 (12:19→23:25)
[2020-11-24 14:40] LABS: PLATELET ESTIMATE NORMAL
[2020-11-25] VITALS (12 sets, daily range): BP systolic 85–124; BP diastolic 38–73
[2020-11-25] MEDS: IPRATROPIUM/ALBUTEROL 0.5-3(2.5)MG/3ML NEB HHN SCH ×4 (00:44→12:01)
[2020-11-25 05:28] LABS: HEMATOCRIT. 30.3 % (36.0-48.0); MEAN CORPUSCULAR HEMOGLOBIN 28.8 pg (28.0-32.0); MEAN CORPUSCULAR VOLUME 87.2 fL (81.0-99.0); MEAN PLATELET VOLUME 6.7 fl (7.4-10.4); PLATELET 336 x1000/uL (130-400); RED BLOOD CELL COUNT 3.47 mill/uL (4.2-5.4); RED CELL DISTRIBUTION WIDTH 14.1 % (11.6-14.6)
[2020-11-25] MEDS ORDERED: FUROSEMIDE 40MG/4ML VIAL IVP NR (06:00)
[2020-11-25] MEDS: BLOOD SUGAR DIAGNOSTIC STRIP TEST SCH ×4 (06:05→20:16)
[2020-11-25 07:03] LABS: PLATELET ESTIMATE NORMAL
[2020-11-25] MEDS: INSULIN LISPRO 100 UNITS/ML SUBCUT SCH ×4 (07:20→20:16)
[2020-11-25] MEDS: METOPROLOL TARTRATE 50MG TABLET PO SCH ×2 (08:38→20:12)
[2020-11-25] MEDS: FAMOTIDINE 20MG/2ML VIAL IV SCH (08:39)
[2020-11-25] MEDS: ASPIRIN 81MG EC TABLET PO SCH (08:39)
[2020-11-25] MEDS: DOCUSATE SODIUM 100MG CAPSULE PO SCH ×2 (08:39→16:55)
[2020-11-25] MEDS: CLOPIDOGREL 75MG TABLET PO SCH (08:39)
[2020-11-25] MEDS ORDERED: POTASSIUM CHLORIDE 20MEQ TABLET SR PO NR (10:30)
[2020-11-25] MEDS: ACETAMINOPHEN 325MG TABLET PO PRN (15:01)
[2020-11-25 15:51] LABS: T4 FREE 1.17 ng/dL (0.76-1.46)
[2020-11-25] MEDS: ONDANSETRON HCL 4MG/2ML INJ IV PRN (17:55)
[2020-11-26] VITALS (11 sets, daily range): BP systolic 78–131; BP diastolic 41–76
[2020-11-26] MEDS: ACETAMINOPHEN 325MG TABLET PO PRN ×3 (02:32→14:26)
[2020-11-26 05:39] LABS: HEMATOCRIT. 30.5 % (36.0-48.0); MEAN CORPUSCULAR HEMOGLOBIN 28.7 pg (28.0-32.0); MEAN CORPUSCULAR VOLUME 87.2 fL (81.0-99.0); MEAN PLATELET VOLUME 6.7 fl (7.4-10.4); PLATELET 352 x1000/uL (130-400); RED CELL DISTRIBUTION WIDTH 14.1 % (11.6-14.6)
[2020-11-26] MEDS: BLOOD SUGAR DIAGNOSTIC STRIP TEST SCH ×3 (06:06→16:50)
[2020-11-26] MEDS: INSULIN LISPRO 100 UNITS/ML SUBCUT SCH ×3 (07:16→17:20)
[2020-11-26] MEDS: METOPROLOL TARTRATE 50MG TABLET PO SCH (08:03)
[2020-11-26] MEDS: DOCUSATE SODIUM 100MG CAPSULE PO SCH ×2 (08:04→17:00)
[2020-11-26] MEDS: CLOPIDOGREL 75MG TABLET PO SCH (08:04)
[2020-11-26] MEDS: ASPIRIN 81MG EC TABLET PO SCH (08:04)
[2020-11-26] MEDS ORDERED: FAMOTIDINE 20MG TABLET PO SCH (09:00)
[2020-11-26] MEDS ORDERED: SODIUM CHLORIDE 0.9% 500 ML IV ONE (09:30)
[2020-11-26 12:36] LABS: PLATELET ESTIMATE NORMAL
== END 2020-11-26 18:05 | DRG 233 ==
LOC: ER 20:42 → 5EST 11-15 02:03 → EDBEDREQ 11-15 02:09 → ENRESERV 11-15 07:26 → 3WST 11-15 17:22 → CVICU 11-18 21:00 → 3WST 11-22 17:39
PROVIDERS: ADMIT Internal Medicine; ATTEND Internal Medicine
PROC: 4A023N7 Measurement of Cardiac Sampling and Pressure, Left Heart, Percutaneous Approach (ICD-10-PCS; principal; 2020-11-15)
PROC: B2111ZZ Fluoroscopy of Multiple Coronary Arteries using Low Osmolar Contrast (ICD-10-PCS; 2020-11-15)
PROC: 02100Z9 Bypass Coronary Artery, One Artery from Left Internal Mammary, Open Approach (ICD-10-PCS; 2020-11-19)
PROC: 0212093 Bypass Coronary Artery, Three Arteries from Coronary Artery with Autologous Venous Tissue, Open Approach (ICD-10-PCS; 2020-11-19)
PROC: 03B10ZZ Excision of Left Internal Mammary Artery, Open Approach (ICD-10-PCS; 2020-11-19)
PROC: 06BQ4ZZ Excision of Left Saphenous Vein, Percutaneous Endoscopic Approach (ICD-10-PCS; 2020-11-19)
PROC: 5A1221Z Performance of Cardiac Output, Continuous (ICD-10-PCS; 2020-11-19)
PROC: 30233N1 Transfusion of Nonautologous Red Blood Cells into Peripheral Vein, Percutaneous Approach (ICD-10-PCS; 2020-11-19)
PROC: 02HV33Z Insertion of Infusion Device into Superior Vena Cava, Percutaneous Approach (ICD-10-PCS; 2020-11-22)
DX: I21.4 Non-ST elevation (NSTEMI) myocardial infarction (principal); J96.01 Acute respiratory failure with hypoxia; I31.3 Pericardial effusion (noninflammatory); J90 Pleural effusion, not elsewhere classified; I25.10 Atherosclerotic heart disease of native coronary artery without angina pectoris; E78.5 Hyperlipidemia, unspecified; I10 Essential (primary) hypertension; D64.9 Anemia, unspecified; Z20.822 Contact with and (suspected) exposure to COVID-19; I34.0 Nonrheumatic mitral (valve) insufficiency; I45.10 Unspecified right bundle-branch block; Z87.891 Personal history of nicotine dependence; Z88.5 Allergy status to narcotic agent; Z88.0 Allergy status to penicillin; Z79.899 Other long term (current) drug therapy; I25.2 Old myocardial infarction; R53.1 Weakness
CPT/HCPCS: 36415; 36600; 71045; 71250; 71275; 76937; 80048; 80053; 80061; 80305; 81003; 82375; 82565; 82805; 82962; 83036; 83735; 84100; 84439; 84443; 84484; 84520; 85014; 85018; 85025; 85347; 85384; 86850; 86900; 86920; 87070; 87426; 93005; 93306; 93458; 93880; 93970; 94618; 94640; 97110; 97116; 97163; 97165; 97530; 97535; 99291; C1725; C1729; C1751; C1758; C1769; C1887; C1893; J0690; J1644; J1650; J1815; J1885; J1940; J2250; J2270; J2370; J2405; J2704; J2720; J2765; J3010; J3370; J3475; J3480; J3490; J7040; J7050; L3908; P9016; P9041; P9047; Q9967; Q9968